=== PATIENT | female | born 1960 | race Caucasian/White ===

== ENCOUNTER → 2017-10-28 08:27 | Outpatient (CLI) | payer MEDICARE ==
[2016-01-03 15:47] VITALS: BMI 35.0
[~2017-10-28 08:27] MED LIST: AMBIEN CR12.5 MG/BO PO; CELEXA20 MG PO; COMPAZINE10 MG PO; CORGARD20 MG PO; DILAUDID4 MG PO; DURAGESIC1 PATCH .2 TRANSDERM; NEURONTIN800 MG PO; NORVASC5 MG PO; PREMARIN0.3 MG PO; PRILOSEC20 MG PO; RELPAX40 MG PO; ROXICODONE15 MG PO; SINEQUAN25 MG PO; TRAVATAN Z2.5 ML EACH EYE; ZANAFLEX4 MG PO; ZOCOR40 MG PO
== END | disposition home or self-care (01) ==
LOC: D.RAD 08:27
DX: R10.9 Unspecified abdominal pain (principal)

== ENCOUNTER 2018-03-17 06:47 | Day surgery (SDC) | payer MEDICARE ==
[~2018-03-17] VITALS: Ht 172.7 cm; Wt 109.1 kg
--- NOTE | ~2018-03-17 | HP ---
PATIENT: COLIN RODRIGUEZ MEDICAL RECORD: [id number] ACCOUNT: [id number] LOCATION:[facility] : 58 ADMISSION DATE: 03/17/18 PCP: SANDY RAO MD HISTORY AND PHYSICAL EXAMINATION CHIEF COMPLAINT: 1. Dysphagia. 2. Gastroesophageal reflux, not controlled. HISTORY: The patient has dysphagia. It is at the level of the cricopharyngeus. It is worse after a cervical fusion. I will plan for esophageal dilation with balloon. She has gastroesophageal reflux, which is not controlled. She is on a PPI as well as Tums. She is a volume refluxer. She refluxes at night and vomits on her pillow. She has been told in the past that she has a hiatal hernia that may need to be repaired. The risks, possible complications and alternatives to procedure were explained to the patient. She elects to proceed. ALLERGIES: EGGS, BREVITAL WELL DEMEROL. HOME MEDICATIONS: Please see the nursing list. SOCIAL HISTORY: Nonsmoker. PAST MEDICAL AND SURGICAL HISTORY: Gastroesophageal reflux, kidney stones and hypertension. History of colon resection by me. PHYSICAL EXAMINATION: GENERAL: The patient does not appear acutely ill. She does not appear chronically ill. VITAL SIGNS: Reviewed. The entire physical examination was performed in the presence of a female nurse. EARS: External ears appear normal. EYES: Extraocular movements are intact. NECK: Trachea is midline. CHEST: No intercostal retractions. PULMONARY: Nonlabored, no stridor. ABDOMEN: Nontender. IMPRESSION: 1. Dysphagia. 2. Uncontrolled gastroesophageal reflux disease. PLAN: EGD with esophageal dilation. TRANSINT:[id number] Voice Confirmation ID: [id number] DOCUMENT ID: [id number] HISTORY AND PHYSICAL [id number] COLIN RODRIGUEZ ROBERT MD at 1603 CC: SANDY RAO MD [id number] DICTATION DATE: 03/17/18923 SLOT FLOORMAN: 03/17/18 1138 [facility] 03/17/18 [address] [id number] [place] [address]
--- NOTE | ~2018-03-17 | OP ---
PATIENT NAME: COLIN RODRIGUEZ MEDICAL RECORD: [id number] :58 LOCATION:D.OPS ADMISSION DATE: SURGEON: OLAYINKA ESCOBAR MD DATE OF OPERATION: 03/17/2018 PREOPERATIVE DIAGNOSES: 1. Dysphagia at the level of the cricopharyngeus. 2. Gastroesophageal reflux disease, uncontrolled. POSTOPERATIVE DIAGNOSES: 1. Dysphagia at the level of the cricopharyngeus. 2. Gastroesophageal reflux disease, uncontrolled. 3. Small hiatal hernia. 4. Bile reflux gastritis, mild. 5. Fundal gastric polyp, sessile, 7 mm. PROCEDURES: 1. Esophagogastroduodenoscopy with antral biopsies. 2. Gastric hot biopsy forceps polypectomy times 1. 3. Control bleeding utilizing the argon plasma civil engineering draftsperson, which is a radiofrequency type of control of bleeding. 4. 54-[place] Citizen balloon dilation with a through the catheter balloon. SURGEON: Olayinka Escobar MD PR INTERN: None. BLOOD LOSS: Minimal. ANESTHESIA: IV sedation. COMPLICATIONS: None. The risks, possible complications, and alternatives to the procedure were explained to the patient. She elects to proceed. The discussion specifically included, but was not limited to, bleeding, requiring emergency reoperation; infection; gastric perforation. ENDOSCOPIC COURSE: The patient was conveyed to endoscopy suite electively on 03/17/2018. IV sedation was induced by the anesthesia staff. A bite block was inserted. A gastroscope was inserted into the mouth. It was advanced easily into the hypopharynx. The esophagus was easily intubated as were stomach and duodenum. Upon withdrawal, retroflexed and angulus views were obtained. Antral biopsies were obtained. There was a gastric polyp, which was best seen in retroflexion. This was removed with the hot biopsy forceps polypectomy technique. There was some post-polypectomy bleeding, which was controlled with the argon plasma civil engineering draftsperson utilizing the esophageal setting in the forced mode. There was no further bleeding. I then unretroflexed the scope. I aspirated the stomach. I advanced a through the catheter balloon. I then sequentially dilated the entire length of the esophagus to 54-[place] Citizen. The gastroscope and balloon dilator were removed. I removed the balloon dilator. I then re-endoscoped the patient's esophagus and stomach. There had been no evidence of false passage or perforation. The endoscope was then withdrawn under direct vision. OPERATIVE REPORT [id number] COLIN RODRIGUEZ I will see the patient in my office in 2-3 weeks. We will review the results of the pathology. Due to the patient's volume reflux, she will be a candidate for a laparoscopic hiatal hernia repair with an antireflux procedure. I will offer her that course of therapy, should she choose to undergo an operation. TRANSINT:[id number] Voice Confirmation ID: [id number] DOCUMENT ID: [id number] OLAYINKA ESCOBAR MD at 1603 CC: SANDY RAO MD [id number] DICTATION DATE: 03/17/18 0959 ASSEMBLER BILLIARD TABLE: 03/17/18 1049 [facility] 03/17/18 [address] [place] [address]
[2018-03-17 07:20] LABS: HEMATOCRIT 44.2 % (36.0-48.0); HEMOGLOBIN 13.7 g/dL (12-16); MCH 26.8 pg (26.0-34.0); MCV 86.5 fL (80.0-100.0); MEAN PLATELET VOLUME 10.3 fL (7.4-10.4); RBC 5.11 10x6/uL (4.00-5.40); RDW 16.7 % (11.5-14.5); WBC 5.9 10x3/uL (4.8-10.8)
[2018-03-17] MEDS ORDERED: AMITRIPTYLINE H50 MG PO (07:43)
[2018-03-17] MEDS ORDERED: CYMBALTA60 MG PO (07:44)
[2018-03-17] MEDS ORDERED: BACLOFEN20 M1 PO (07:46)
[2018-03-17 07:54] VITALS: BP 146/88; Ht 172.7 cm; Wt 109.1 kg
== END 2018-03-17 11:17 | disposition home or self-care (01) ==
LOC: D.OPS 06:47
PROVIDERS: Anesthesiology
DX: K29.60 Other gastritis without bleeding (principal); K44.9 Diaphragmatic hernia without obstruction or gangrene; K31.7 Polyp of stomach and duodenum; K21.9 Gastro-esophageal reflux disease without esophagitis; Z98.1 Arthrodesis status; Z88.5 Allergy status to narcotic agent; Z88.8 Allergy status to other drugs, medicaments and biological substances; Z91.012 Allergy to eggs; I10 Essential (primary) hypertension; Z01.812 Encounter for preprocedural laboratory examination

== ENCOUNTER 2018-04-30 10:27 | Outpatient (CLI) | payer MEDICARE ==
[2018-03-17 07:54] VITALS: BMI 36.5
[~2018-04-30 10:27] MED LIST changes: +AMITRIPTYLINE H50 MG PO; +BACLOFEN20 M1 PO; +CYMBALTA60 MG PO
== END 2018-04-30 11:53 | disposition home or self-care (01) ==
LOC: D.OPS 10:27
DX: K21.9 Gastro-esophageal reflux disease without esophagitis (principal); Z01.812 Encounter for preprocedural laboratory examination

== ENCOUNTER 2018-07-03 08:30 | Inpatient (IN) | payer MEDICARE ==
[2018-07-02 14:44] LABS: HEMATOCRIT 45.7 % (36.0-48.0); HEMOGLOBIN 14.3 g/dL (12-16); MCH 28.9 pg (26.0-34.0); MCHC 31.3 g/dL (31.0-37.0); MCV 92.3 fL (80.0-100.0); MEAN PLATELET VOLUME 10.3 fL (7.4-10.4); RBC 4.95 10x6/uL (4.00-5.40); RDW 15.6 % (11.5-14.5); WBC 8.7 10x3/uL (4.8-10.8)
[~2018-07-03] VITALS: Ht 172.7 cm; Wt 115.7 kg
[2018-07-03] VITALS (12 sets, daily range): BP systolic 107–159; BP diastolic 44–93; BMI 38.1; BMI 36.5
[~2018-07-03 08:30] MED LIST changes: +BEPREVE10 ML EACH EYE; +ESTRACE 0.5 MG0.5 MG PO; +IMITREX6 MG/0.51 SQ; +OMEPRAZOLE20 M1 PO; +RIZATRIPTAN5 M1 PO
[2018-07-03] MEDS ORDERED: NEURONTIN800 MG PO (09:21)
--- NOTE | 2018-07-03 13:34 | NUR ---
PRE OP BP 171/101 PER ANESTHESIA
--- NOTE | 2018-07-03 13:55 | NUR ---
PRE OP O2 SAT 92% NOTED TO ANESTHESIA RECORD
--- NOTE | 2018-07-03 14:12 | NUR ---
PT RECEIVED FROM RECOVERY VIA BED. RESTING WITH EYES CLOSED, EASILY AROUSED. O2 @ 4L NC IN PLACE. IV TO RIGHT ARM WITH LR INFUSING. 5 LAPSITES TO ABDOMEN WITH STERI STRIPS INTACT, SITES WITHOUT DRAINAGE. SCABED AREA TO LEFT UPPER QUAD NOTED. DENIES PAIN AT THIS TIME. ORIENTED TO CL AND BED CONTROLS. WILL CONTINUE TO MONITOR.
[2018-07-04] VITALS (17 sets, daily range): BP systolic 76–128; BP diastolic 30–70
[2018-07-04 06:55] LABS: BASOPHILS 0.2 % (0-2); EOSINOPHILS 2.2 % (0-7); HEMATOCRIT 44.2 % (36.0-48.0); HEMOGLOBIN 13.5 g/dL (12-16); IMMATURE GRANULOCYTES 0.4 % (0-5); LYMPHOCYTES 28.8 % (15-50); MCH 28.1 pg (26.0-34.0); MCHC 30.5 g/dL (31.0-37.0); MCV 92.1 fL (80.0-100.0); MEAN PLATELET VOLUME 10.7 fL (7.4-10.4); MONOCYTES 8.1 % (2-11); NEUTROPHILS 60.3 % (40-80); PLATELET COUNT 182 10x3/uL (130-400); WBC 8.3 10x3/uL (4.8-10.8)
[2018-07-04 07:35] LABS: ALBUMIN 2.8 g/dL (3.4-5.0); ALKALINE PHOSPHATASE 88 U/L (46-116); ALT (SGPT) 85 U/L (10-68); BILIRUBIN - TOTAL 0.56 mg/dL (0.2-1.3); CALC OSMOLALITY 277 mosm/kg (275-300); CALCIUM 8.6 mg/dL (8.5-10.1); CARBON DIOXIDE 32.3 mmol/L (21.0-32.0); CHLORIDE - SERUM 99 mmol/L (98-107); CREATININE - SERUM 0.7 mg/dL (0.6-1.3); GLUCOSE 103 mg/dL (74-106); POTASSIUM - SERUM 4.2 mmol/L (3.5-5.1); PROTEIN - SERUM 7.1 g/dL (6.4-8.2); SODIUM 140 mmol/L (136-145); UREA NITROGEN 11 mg/dL (7-18); eGFR NON AFRICAN AMERICAN > 90 mL/min (90-120)
--- NOTE | 2018-07-04 08:30 | NUR ---
PT AOX4 RESP EVEN AND NONLABORED PT DENIES NEEDS AT THIS TIME IV TO LEFT FOREARM PATENT AND INTACT AT THIS TIME SRX2 BED AT LOWEST SETTING CALL LIGHT WITHIN REACH WILL CONTINUE TO MONITOR
[2018-07-04] MEDS ORDERED: MS CONTIN15 MG PO (14:35)
--- NOTE | 2018-07-04 15:54 | NUR ---
ORDERED IV 40MG ONE TIME. AND A CHEST XRAY FOR AM. OVERHEAD IRRIGATOR NOTIFIED AT THIS TIME.
--- NOTE | 2018-07-04 15:58 | NUR ---
PT SON NOTIFIED AT THIS TIME
--- NOTE | 2018-07-04 17:53 | NUR ---
STAFF CALL RAPID DUE TO NOTED WADE IN AUDITORY RESP. SOUNDS. PATIENT NOTED TO BE IN NO NOTED DISTRESS, RT PRESENT AND AGREES THE NOISES ARE MOSTLY IN THE THROAT AREA, NOTIFIED DR. OVIEDO WITH NEW ORDERS RECD.
--- NOTE | 2018-07-04 20:33 | NUR ---
IN AT 1999 TO ASSESS PATIENT. PT WITH RESPIRATIONS AT 17 BUT NOT AROUSING TO VERBAL STIMULI. STERNAL RUB AND PATIENT STILL NOT AROUSING. PAGED DOCTOR PREET AND IMMEDIATE RETURN PHONE CALL WITH AN ORDER FOR STAT ABG'S. ABG'S RESULTED IN CHART. SPOKE WITH DR. OVIEDO AGAIN AND RECEIVED ORDERS TO TRANSFER PATIENT TO ICU AND START BIPAP IMMEDIATELY. RESPIRATORY THERAPIST NOTIFIED OF BIPAP AND SETTING UP EUIPMENT. LIBRARIAN SPECIAL COLLECTIONS NOTIFIED OF TRANSFER. CONTINUOUS MONITORING OF PATIENT AT THIS TIME.
[2018-07-04 20:55] LABS: BASOPHILS 0.2 % (0-2); EOSINOPHILS 3.1 % (0-7); HEMATOCRIT 39.2 % (36.0-48.0); HEMOGLOBIN 12.2 g/dL (12-16); IMMATURE GRANULOCYTES 0.3 % (0-5); LYMPHOCYTES 28.8 % (15-50); MCH 28.6 pg (26.0-34.0); MCHC 31.1 g/dL (31.0-37.0); MEAN PLATELET VOLUME 9.7 fL (7.4-10.4); MONOCYTES 8.4 % (2-11); NEUTROPHILS 59.2 % (40-80); PLATELET COUNT 164 10x3/uL (130-400); RBC 4.26 10x6/uL (4.00-5.40); RDW 16.1 % (11.5-14.5)
[2018-07-04 21:07] LABS: ALBUMIN 2.6 g/dL (3.4-5.0); ANION GAP 9.9 mmol/L (8-16); BILIRUBIN - DIRECT 0.24 mg/dL (0.00-0.30); BILIRUBIN - TOTAL 0.69 mg/dL (0.2-1.3); CALCIUM 8.1 mg/dL (8.5-10.1); CARBON DIOXIDE 32.1 mmol/L (21.0-32.0); PROTEIN - SERUM 6.6 g/dL (6.4-8.2)
[2018-07-04 21:08] LABS: APTT 30.2 SECONDS (22.8-39.4); INR 1.08 (0.85-1.17); PROTIME 13.5 SECONDS (11.6-15.0)
--- NOTE | 2018-07-04 21:26 | NUR ---
REPORT RECEIVED CARE ASSUMED. ICU MONITORS IN PLACE. ASSESSMENT DONE SEE FLOW SHEET. WILL CONTINUE TO MONITOR.
--- NOTE | 2018-07-04 21:37 | NUR ---
DR OVIEDO INFORMED OF PT STATUS. NO NEW ORDERS RECEIVED. ORDER TO CALL BACK WITH CHANGES RECEIVED. DECREASE IN BP NOTED. WILL CONITNUE TO MONITOR.
--- NOTE | 2018-07-04 23:51 | NUR ---
2300 REASSESSMENT DONE SEE FLOW SHEET. DR OVIEDO INFORMED OF PT STATUS. ORDERS RECEIVED. 2350 DR OVIEDO INFORMED OF PT STATUS. STAT ABG ORDERED. WILL CALL WITH RESULTS.
[2018-07-05] VITALS (22 sets, daily range): BP systolic 97–134; BP diastolic 36–70; Ht 172.7 cm; Wt 115.7 kg
--- NOTE | 2018-07-05 03:00 | NUR ---
0100 PT IN BED RESTING. VSS. NO SIGN SO FACUTE DISTRESS NOTED WILL CONTINUE TO MONITOR. 0300 REASSESSMENT DONE SEE FLOW SHEET. VSS. RT AT BEDSIDE.
--- NOTE | 2018-07-05 03:52 | NUR ---
PT AOX4. SITTING UP IN BED USING IPAD NOT IMPARMENTS NOTED.
--- NOTE | 2018-07-05 05:00 | NUR ---
COMPLETE BED BATH. PT VERBALIZES GREATFULLNESS FOR CARE. VSS. NO SIGNS OF ACUTE DISTRESS NOTED WILL CONTINUE TO MONITOR.
[2018-07-05 06:05] LABS: ANION GAP 14.2 mmol/L (8-16); CALCIUM 7.8 mg/dL (8.5-10.1); CARBON DIOXIDE 32.6 mmol/L (21.0-32.0); CREATININE - SERUM 0.9 mg/dL (0.6-1.3); POTASSIUM - SERUM 3.8 mmol/L (3.5-5.1)
[2018-07-05 06:28] LABS: BASOPHILS 0.2 % (0-2); EOSINOPHILS 4.1 % (0-7); HEMATOCRIT 35.8 % (36.0-48.0); HEMOGLOBIN 10.9 g/dL (12-16); MCH 28.2 pg (26.0-34.0); MCHC 30.4 g/dL (31.0-37.0); MCV 92.5 fL (80.0-100.0); MEAN PLATELET VOLUME 10.3 fL (7.4-10.4); MONOCYTES 6.1 % (2-11); NEUTROPHILS 58.6 % (40-80); RBC 3.87 10x6/uL (4.00-5.40)
[2018-07-05 06:29] LABS: PLATELET COUNT 127 10x3/uL (130-400); WBC 5.4 10x3/uL (4.8-10.8)
--- NOTE | 2018-07-05 07:17 | NUR ---
RT AT BEDSIDE BLOOD GAS REVIEWED NC AT 4LPM VSS WILL CONTINUE TO MONITOR.
--- NOTE | 2018-07-05 10:45 | NUR ---
DR. MIESHA ACOSTA. ALREADY AWARE OF CONSULT.
--- NOTE | 2018-07-05 13:34 | NUR ---
0945: WALKED WITH PT AND ASSISTED TO RECLINER. 1100: ASSISTED BACK TO BED. C/O BACK HURTING AND UNABLE TO STAY UP IN CHAIR ANY LONGER. IV R FOREARM INFILTRATED. IVF CONNECTED TO SALINE LOCK R HAND. 1130: ASSISTED BACK TO CHAIR. 1245: IV R HAND INFILTRATED. RESTARTED IN L FOREARM ON 2ND ATTEMPT WITH 2OG. IV LRS CONNECTED @ 20CC/HR. 1300: ASSISTED BACK TO BED.
--- NOTE | 2018-07-05 21:01 | NUR ---
1900 REPORT RECEIVED CARE ASSUMED. PT LAYING IN BED RESTING. VSS. ASSESSMENT DONE SEE FLOW SHEET. 1999 PT AMBULATED WITH MINIMAL ASSISTANCE TO BATHROOM. BM NOTED SEMIFORMED. 2100 MEDS GIVEN PER JUL. VSS. BIPAP PUT IN PLACE.
--- NOTE | 2018-07-05 22:58 | NUR ---
REASSESSMENT COMPLETE. VSS. NO SIGNS OF ACUTE DISTRESS NOTED WILL CONTINUE TO MONITOR.
[2018-07-06] VITALS (22 sets, daily range): BP systolic 87–168; BP diastolic 43–93
--- NOTE | 2018-07-06 01:00 | NUR ---
PT DISLODGED IV. PIV RESITED R FOREARM 20G. VSS. PT VERBALIZES NO COMPLAINTS.
--- NOTE | 2018-07-06 02:52 | NUR ---
REASSESSMENT DONE SEE FLOW SHEET. VSS. PT IN BED RESTING. BREAK FROM BIPAP GIVEN. WILL CONTINUE TO MONITOR.
[2018-07-06 04:32] LABS: BASOPHILS 0.2 % (0-2); EOSINOPHILS 4.4 % (0-7); HEMATOCRIT 37.1 % (36.0-48.0); HEMOGLOBIN 11.1 g/dL (12-16); IMMATURE GRANULOCYTES 0.4 % (0-5); LYMPHOCYTES 29.7 % (15-50); MCH 28.2 pg (26.0-34.0); MCHC 29.9 g/dL (31.0-37.0); MCV 94.2 fL (80.0-100.0); MEAN PLATELET VOLUME 9.9 fL (7.4-10.4); MONOCYTES 7.1 % (2-11); NEUTROPHILS 58.2 % (40-80); PLATELET COUNT 127 10x3/uL (130-400); RBC 3.94 10x6/uL (4.00-5.40); RDW 15.7 % (11.5-14.5); WBC 4.8 10x3/uL (4.8-10.8)
[2018-07-06 04:50] LABS: ALKALINE PHOSPHATASE 78 U/L (46-116); BILIRUBIN - TOTAL 0.72 mg/dL (0.2-1.3); CALCIUM 8.2 mg/dL (8.5-10.1); CARBON DIOXIDE 29.2 mmol/L (21.0-32.0); CHLORIDE - SERUM 106 mmol/L (98-107); POTASSIUM - SERUM 3.9 mmol/L (3.5-5.1); PROTEIN - SERUM 6.6 g/dL (6.4-8.2); SODIUM 142 mmol/L (136-145)
[2018-07-06 04:52] LABS: ALT (SGPT) 46 U/L (10-68); CALC OSMOLALITY 279 mosm/kg (275-300); CREATININE - SERUM 0.6 mg/dL (0.6-1.3); GLUCOSE 88 mg/dL (74-106); UREA NITROGEN 6 mg/dL (7-18); eGFR NON AFRICAN AMERICAN > 90 mL/min (90-120)
--- NOTE | 2018-07-06 05:00 | NUR ---
PT AMBULATED TO CHAIR MODERATE ASSISTANCE PROVIDED.
--- NOTE | 2018-07-06 07:00 | NUR ---
PATIENT SITTING UP IN CHAIR AWAKE AND ALERT WITH STABLE VS. O2 INFUSING AT 2L VIA NC. 5 ABDOMINAL INCISIONS TO ABDOMEN INTACT WITH NO REDNESS OR SWELLING AND STERI STRIPS INTACT. WILL CONTINUE TO MONITOR.
--- NOTE | 2018-07-06 09:00 | NUR ---
ASSISTED PATIENT BACK TO BED FROM CHAIR. VSS. WILL CONTINUE TO MONITOR.
--- NOTE | 2018-07-06 10:00 | NUR ---
PATIENT REFUSED K+ LAB REDRAW. PREVIOUS LAB WAS 3.4 AND TREATED WITH 40MG.
--- NOTE | 2018-07-06 10:49 | NUR ---
WOUND CARE NURSE OMER CAME TO LOOK AT BUTTOCK STAGE 2 WOUND. WE PLACED MEPILEX DRESSING. ALSO TURNED TO RIGHT SIDE.
--- NOTE | 2018-07-06 10:59 | NUR ---
PATIENT RESTING IN BED WITH NO COMPLAINTS. VSS. WILL CONTINUE TO MONITOR.
--- NOTE | 2018-07-06 11:31 | NUR ---
ASSISTED PATIENT TO BATHROOM TO HAVE LOOSE BM. NURSE CLEANED AND ASSISTED BACK VIA WALKER. VSS.
--- NOTE | 2018-07-06 13:26 | NUR ---
PHYSICAL THERAPY AMBULATED PATIENT 142 FEET WITH WALKER AND NO 02. OXYGEN DROPPED TO 88% AT LOWEST AND HUNG AROUND 92% MOSTLY. NOTIFIED DR. TAN AND WILL NOTIFY BASTING CLEANER RACHEL TO ARRANGE FOR HOME O2. PATIENT NOW SITTING UP IN CHAIR WITH O2 2L/NC. VSS.
--- NOTE | 2018-07-06 13:31 | NUR ---
SPOKE TO DR. GENA CHRISTIANSON TEODORA TO AMEND DISCHARGE ORDER OR CHANGE IT TO TOMORROW.
--- NOTE | 2018-07-06 14:36 | NUR ---
ASSISTED PT TO BATHROOM FOR FALSE ALARM BM. YOLIS RN, TRANSFERRED BACK TO BED AND HOOKED UP TO MONITOR. VSS.
--- NOTE | 2018-07-06 16:00 | NUR ---
REMOVED MORE CATHETER PER VERBAL ORDER BY DR. TAN.
--- NOTE | 2018-07-06 16:34 | NUR ---
ASSISTED PT TO BR TO VOID THEN TO CHAIR. SITTING UP TALKING TO FRIEND. VSS.
--- NOTE | 2018-07-06 16:56 | NUR ---
OT NOTE: PT COMPLETED BED MOB AND EOB SITTING BALANCE WITH SBA. PT COMPLETED BUE AROM AXS. THANK YOU, DAVID MARIO
--- NOTE | 2018-07-06 17:00 | NUR ---
PATIENT RESTING IN BED C CALL MONTANO IN REACH. VSS.
--- NOTE | 2018-07-06 19:30 | NUR ---
REC'D TO CARE, MACHINE ADJUSTER HELPER PER FLOWSHEET. PT ALERT AND ORIENTED, VSS. PT UP TO BSC, VOIDED 200ML CLEAR, YELLOW URINE, ADAIR-CARE PER PT. BACK TO BED. ALARMS ON AND C.L. IN REACH. PT WITH DISCHARGE ORDERS HOME TOMORROW WITH HOME BIPAP.
--- NOTE | 2018-07-06 20:56 | NUR ---
ADMIN PO MEDS PER MD ORDER. PT HOME MED DOXEPIN HELD THIS MORNING PER PT REQUEST D/T SHE TAKES IT AT NIGHT. UNABLE TO CLARIFY HOME MED LIST D/T DISCHARGE MED REC COMPLETE. PT BACK TO BED, BIPAP ON. C/L IN REACH.
--- NOTE | 2018-07-06 23:30 | NUR ---
REASSESSMENT PER FLOWSHEET, NO ACUTE CHANGES. PT TAKING BREAK FROM BIPAP. UP TO BSC INDEPENDENTLY. THEN BACK TO BED. ALARMS ON AND C/L IN REACH.
[2018-07-07] VITALS (11 sets, daily range): BP systolic 126–151; BP diastolic 55–92
--- NOTE | 2018-07-07 01:14 | NUR ---
PT RESTING QUIETLY, VSS. BIPAP 40%. C/L IN REACH.
--- NOTE | 2018-07-07 04:37 | NUR ---
WENT TO XRAY VIA W/C. BACK TO ROOM AND C/O PAIN. ADMIN PRN RIZATRIPTAN.
[2018-07-07 05:04] LABS: CALC OSMOLALITY 279 mosm/kg (275-300); CALCIUM 8.4 mg/dL (8.5-10.1); CARBON DIOXIDE 30.6 mmol/L (21.0-32.0); CHLORIDE - SERUM 106 mmol/L (98-107); CREATININE - SERUM 0.6 mg/dL (0.6-1.3); GLUCOSE 94 mg/dL (74-106); MAGNESIUM - SERUM 1.9 mg/dL (1.8-2.4); PHOSPHOROUS 2.8 mg/dL (2.5-4.9); POTASSIUM - SERUM 3.6 mmol/L (3.5-5.1); SODIUM 142 mmol/L (136-145); UREA NITROGEN 5 mg/dL (7-18); eGFR NON AFRICAN AMERICAN > 90 mL/min (90-120)
--- NOTE | 2018-07-07 06:00 | NUR ---
PT UP TO BSC, MINIMAL ASSIST. VOIDED 150ML CLEAR, KRISTA URINE, ADAIR-CARE PER PT. BACK TO BED. C/L IN REACH.
--- NOTE | 2018-07-07 08:34 | NUR ---
UP IN CHAIR BESIDE BED WATCHING TV AT THIS TIME. NO ACUTE DISTRESS NOTED. PT ALERT AND ORIENTED. ASSISTED TO TOILET VIA STAND BY ASSIST. PT DENIES ANY NEEDS. WILL CONTINUE PLAN OF CARE.
--- NOTE | 2018-07-07 09:46 | NUR ---
CN[place] IS A PT HOME MED, SHE STATES SHE TAKES AT [facility] NOT IN AM. TIME CHANGED TO [facility] PER PT REQUEST.
--- NOTE | 2018-07-07 11:54 | NUR ---
CONTINENT BOWEL MOVEMENT NOTED AT THIS TIME VIA TOILET. PT WALKED INDEPENDENTLY. NO ACUTE DISTRESS NOTED. WILL CONTINUE PLAN OF CARE.
--- NOTE | 2018-07-07 13:25 | OP ---
PATIENT NAME: COLIN RODRIGUEZ MEDICAL RECORD: [id number] :58 LOCATION:[facility] ADMISSION DATE:07/04/18 SURGEON: MICHAEL ESCOBAR MD DATE OF OPERATION: 07/03/2018 PREOPERATIVE DIAGNOSES: 1. Volume gastroesophageal reflux. 2. Intractable gastroesophageal reflux. 3. Hiatal hernia. POSTOPERATIVE DIAGNOSES: 1. Volume gastroesophageal reflux 2. Intractable gastroesophageal reflux. 3. Hiatal hernia. 4. Hepatomegaly. 5. Nodular liver consistent with cirrhosis. 6. Stigmata of portal hypertension. 7. Splenomegaly. PROCEDURES: 1. Laparoscopic hiatal hernia repair. 2. Laparoscopic Yordy fundoplication. 3. A 14-gauge core needle liver biopsy. SURGEON: Michael Escobar MD GLOBAL LOGISTICS ANALYST: Dr. AJ Chacko, also Gisel Escalante APN BLOOD LOSS: 100 cc. ANESTHESIA: General. COMPLICATIONS: None. The risks, possible complications and alternatives to the procedure were explained to the patient. She elects to proceed. OPERATIVE COURSE: The patient was conveyed to the operating room electively on 07/03/2018. General anesthesia was induced by anesthesia staff. The abdomen was sterilely prepped and draped. Utilizing Optiview device, I entered the peritoneal cavity through a transverse incision just above the umbilicus. CO2 insufflation was begun. Once a sufficient pneumoperitoneum had been achieved, two 5-mm trocars were inserted in the left side of the abdomen. A 12-mm trocar and a 5-mm trocar were inserted in the right side of the abdomen. A 5-mm incision was accomplished just inferior to the xiphoid process. The Marty retractor was placed and used to elevate the left lateral segment of the liver. Under laparoscopic guidance, I percutaneously accessed the right upper quadrant utilizing a 14-guage core biopsy device. The biopsy sites were made hemostatic with electrocautery. I took down the pars flaccida with the Harmonic scalpel. I then divided the phrenicoesophageal ligament with the Harmonic scalpel. I then excised the esophagogastric fat pad with the Harmonic scalpel. We came around the greater curve of the stomach with the Harmonic scalpel as well. At no time was there any apparent injury to the stomach or esophagus, I then dissected up into the OPERATIVE REPORT [id number] RODRIGUEZ,COLIN A mediastinum bluntly. I defined both crura of the diaphragm. I created a retroesophageal window. The hiatal hernia repair was a posterior crural repair that consisted of a 0 Prolene Stratafix suture. I then performed the fundoplication, which was a 3 stitch anterior Yordy type fundoplication and this was done suturing fundus of the stomach to esophagus to fundus of the stomach anteriorly. This consisted of a 2-0 PDS. I then removed the Marty retractor. There was no bleeding. Dr. Chacko performed an EGD and there was no evidence of perforation or bleeding. The endoscope was then withdrawn under direct vision. The 12-mm trocar and 11-mm trocar sites were closed in the following manner. THe fascia was closed with interrupted 0 Vicryl sutures. The skin was approximated with multiple interrupted intracuticular 4-0 Vicryls. Benzoin and Steri-Strips were applied. The patient was then extubated and conveyed to post-anesthesia care unit where she was in stable condition. TRANSINT:[id number] Voice Confirmation ID: [id number] DOCUMENT ID: [id number] MICHAEL ESCOBAR MD at 1325 CC: [id number] DICTATION DATE: 07/03/18 1524 COTTON WEIGHER: 07/03/18 3399 ADM IN [place] [id number] [place] [id number]
--- NOTE | 2018-07-07 13:49 | NUR ---
PT TO BE DISCHARGED HOME TODAY, NOTED SHE NEEDS TO FOLLOW UP WITH DR WHITESIDE IN 2-[address] ESCOBAR IN 2 WEEKS. PT STATED SHE WISHED TO SET UP THE APPOINTMENTS HERSELF INSTEAD OF STAFF MAKING THOSE APPOINTMENTS FOR HER. ALSO NOTED PER CASE MANAGEMENT THE HOME OXYGEN ORDERED IS IN HER ROOM WITH HER READY FOR WHEN SHE GOES HOME, AND INSURANCE HAS YET TO APPROVE THE TRILOGY. WILL CONTINUE PLAN OF CARE.
--- NOTE | 2018-07-07 14:57 | NUR ---
PT DC HOME AT THIS TIME VIA WHEELCHAIR WITH ASSIST FROM NURSING STAFF. LEFT VIA PERSONAL VEHICLE WITH FRIEND. PER CASE MANAGEMENT OXYGEN AND NEBULIZER SHOULD BE DELIVERED TO HOME SOON IF NOT DONE ALREADY, AND TRILOGY APPROVEMENT IS PENDING. PT IS AWARE OF UPCOMING APOINTMENTS AND STATED SHE WISHED TO MAKE HER OWN APPOINTMENTS. DENIES ANY FURTHER QUESTIONS OR CONCERNS. LEFT WITH DISCHARGE PAPERWORK, OXYGEN DELIVERED BY [facility], AND [facility]. NO ACUTE DISTRESS. NO FUTHER ACTIONS.
--- NOTE | 2018-07-07 15:27 | MORECARE ---
CASE MANAGEMENT DISCHARGE SUMMARY PATIENT: COLIN RODRIGUEZ UNIT: [id number] ADM DATE: 07/04/18 AGE: 58 : 58 SEX: F ROOM/BED: [facility] AUTHOR: NILSON CUMMINS PHYSICIAN: REFERRING PHYSICIAN: MICHAEL ESCOBRA MD DATE OF SERVICE: 07/07/18 Discharge Plan Patient Name: COLIN RODRIGUEZ Facility: [facility]:[place] : 1960 Planned Disposition: Home Anticipated Discharge Date: Discharge Date: 07/07/2018 Expected LOS: Initial Reviewer: [email or web address] Initial Review Date: 07/06/2018 Generated: 07/07/18 4:27 pm External Providers External Provider: Aislinn Mabry Next Contact Date: Service Request Date: Service Type: Resolution: Reviewer: Comments: Coverage Notice Reviewer: [email or web address] Jason Maravilla Notice Issued Date-Time: 07/07/2018 15:05 Notice Type: IM Discharge Notice Notice Delivered To: Patient Relationship to Patient: Self Gaming Investigator Name: Delivery Method: HAND - Hand Delivered Taty Days: Prior Verbal Notification: Recipient Understood Notice: Yes Recipient Signature: Yes Med Rec Note Co-signed by Attending: Coverage Notice Comment: Patient Name: COLIN RODRIGUEZ Page [id number] at 1527 All edits/amendments must be made on the electronic document DICTATION DATE: 07/07/18 1526 LOG RAFTER: ZAIRA 07/07/18 1526 RPT#: [id number] DC DATE:07/07/18 STATUS: DIS IN [facility] [address] [facility] [address] END OF REPORT
--- NOTE | 2018-07-07 16:27 | MORECARE ---
CASE MANAGEMENT DISCHARGE SUMMARY PATIENT: COLIN RODRIGUEZ UNIT: [id number] ADM DATE: 07/04/18 AGE: 58 : 58 SEX: F ROOM/BED: [facility] AUTHOR: NILSON CUMMINS PHYSICIAN: REFERRING PHYSICIAN: MICHAEL ESCOBAR MD DATE OF SERVICE: 07/07/18 Discharge Plan Patient Name: COLIN RODRIGUEZ Facility: [facility]:[place] : 1960 Planned Disposition: Home Anticipated Discharge Date: Discharge Date: 07/07/2018 Expected LOS: Initial Reviewer: [email or web address] Initial Review Date: 07/06/2018 Generated: 07/07/18 5:27 pm DCPIA - Discharge Planning Initial Assessment Updated by ANT: Donna Maravilla on 07/07/18 4:26 pm * Is the patient Alert and Oriented? Yes * How many steps to enter\exit or inside your home? RAMP * PCP [facility] * Pharmacy [facility] * Preadmission Environment Home with Family * ADLs Independent * Equipment Hospital Bed * List name and contact numbers for known caregivers / representatives who currently or will assist patient after discharge: YE REYNAGA [facility]- [phone] * Verbal permission to speak to the caregivers and representatives has been obtained from the patient. N/A * Community resources currently utilized None * Additional services required to return to the preadmission environment? No * Can the patient safely return to the preadmission environment? Yes * Has this patient been hospitalized within the prior 30 days at any hospital? No Coverage Notice Reviewer: [email or web address] Jason Maravilla Notice Issued Date-Time: 07/07/2018 15:05 Notice Type: IM Discharge Notice Notice Delivered To: Patient Relationship to Patient: Self Office Equipment Mechanic Name: Delivery Method: HAND - Hand Delivered Taty Days: Prior Verbal Notification: Recipient Understood Notice: Yes Recipient Signature: Yes Med Rec Note Co-signed by Attending: Coverage Notice Comment: Last DP export: 07/07/18 2:27 p Patient Name: COLIN RODRIGUEZ Page [id number] at 1627 All edits/amendments must be made on the electronic document DICTATION DATE: 07/07/181625 WEIGHT ENGINEER: ZAIRA 07/07/18 162 RPT#: [id number] DC DATE:07/07/18 STATUS: DIS IN [facility] [address] [place] [address] END OF REPORT
--- NOTE | 2018-07-07 16:36 | MORECARE ---
CASE MANAGEMENT DISCHARGE SUMMARY PATIENT: COLIN RODRIGUEZ UNIT: [id number] ADM DATE: 07/04/18 AGE: 58 : 58 SEX: F [facility] AUTHOR: PLACIDO,DOC PHYSICIAN: REFERRING PHYSICIAN: MICHAEL ESCOBAR MD DATE OF SERVICE: 07/07/18 Discharge Plan Patient Name: COLIN RODRIGUEZ Facility: [facility]:[place] : 1960 Planned Disposition: Home Anticipated Discharge Date: Discharge Date: 07/07/2018 Expected LOS: Initial Reviewer: [email or web address] Initial Review Date: 07/06/2018 Generated: 07/07/18 5:35 pm Comments DCP- Discharge Planning Updated by [email or web address]: Donna Maravilla on 07/07/18 3:[address] LATE ENTRY 07/06/18 @ 1030 Patient Name: COLIN RODRIGUEZ Admission Status: Elective Accout number: [id number] Admission Date: 07-04-2018 : 1960 Admission Diagnosis:DIAPHRAGMATIC HERNIA WITHOUT OBSTRUCTION OR GANGRENE Attending: MIHCAEL ESCOBAR Current LOS: 3 Anticipated DC Date: Planned Disposition: Home Primary Insurance: [facility] [employer] Discharge Planning Comments: CM met with patient at bedside. Patient states she lives at home with family and plans to return to their home upon discharge. Patient denies any discharge needs at this time. CM will continue to follow and assist as needed with discharge planning / needs. Principal Systems Engineer: Donna Maravilla DCPIA - Discharge Planning Initial Assessment Updated by [email or web address]: Donna Maravilla on 07/07/18 4:26 pm * Is the patient Alert and Oriented? Yes * How many steps to enter\exit or inside your home? RAMP * PCP [facility] * Pharmacy [facility] * Preadmission Environment Home with Family * ADLs Independent * Equipment Hospital Bed * List name and contact numbers for known caregivers / representatives who currently or will assist patient after discharge: YE VIRK- [phone] * Verbal permission to speak to the caregivers and representatives has been obtained from the patient. N/A * Community resources currently utilized None * Additional services required to return to the preadmission environment? No * Can the patient safely return to the preadmission environment? Yes * Has this patient been hospitalized within the prior 30 days at any hospital? No Coverage Notice Reviewer: [email or web address] Jason Maravilla Notice Issued Date-Time: 07/07/2018 15:05 Notice Type: IM Discharge Notice Notice Delivered To: Patient Relationship to Patient: Self Mat Cutter Name: Delivery Method: HAND - Hand Delivered Taty Days: Prior Verbal Notification: Recipient Understood Notice: Yes Recipient Signature: Yes Med Rec Note Co-signed by Attending: Coverage Notice Comment: Last DP export: 07/07/18 3:27 p Patient Name: COLIN RODRIGUEZ Page [phone] at 1636 All edits/amendments must be made on the electronic document DICTATION DATE: 07/07/18 1635 AVIONICS SYSTEMS ENGINEER: ZAIRA 07/07/18 1635 RPT#: [id number] DC DATE:07/07/18 STATUS: DIS IN [facility] [address] [place] [address] END OF REPORT
--- NOTE | 2018-07-07 16:52 | MORECARE ---
CASE MANAGEMENT DISCHARGE SUMMARY PATIENT: COLIN RODRIGUEZ UNIT: [id number] ADM DATE: 07/04/18 AGE: 58 : 58 SEX: F ROOM/BED: [facility] AUTHOR: NILSON CUMMINS PHYSICIAN: REFERRING PHYSICIAN: MICHAEL ESCOBAR MD DATE OF SERVICE: 07/07/18 Discharge Plan Patient Name: COLIN RODRIGUEZ Facility: [facility]:[place] : 1960 Planned Disposition: Home Anticipated Discharge Date: Discharge Date: 07/07/2018 Expected LOS: Initial Reviewer: [email or web address] Initial Review Date: 07/06/2018 Generated: 07/07/18 5:52 pm Comments DCP- Discharge Planning Updated by [email or web address]: Donna Maravilla on 07/07/18 3:[address] Late Entry 07/06/18 @ 1130 CM received notification to set up for Trilogy, nebulizer, and Home 02. CM spoke with patient and OTTONIEL signed for DME. [facility] [phone] fax [phone]. CM spoke with Marian and faxed over records and orders. Marian called CM back stated that [facility] insurance requires an Auth for Trilogy and it could take up to 3 days for approval. Orders received and signed by Dr. Pérez and faxed back to DME. CM will continue to follow and assist as needed with discharge planning / needs. DCP- Discharge Planning Updated by [email or web address]: Donna Maravilla on 07/07/18 3:[address] LATE ENTRY 07/06/18 @ 1030 Patient Name: COLIN RODRIGUEZ Admission Status: Elective Accout number: [id number] Admission Date: 07-04-2018 : 1960 Admission Diagnosis:DIAPHRAGMATIC HERNIA WITHOUT OBSTRUCTION OR GANGRENE Attending: MICHAEL ESCOBAR Current LOS: 3 Anticipated DC Date: Planned Disposition: Home Primary Insurance: [facility] [employer] Discharge Planning Comments: CM met with patient at bedside. Patient states she lives at home with family and plans to return to their home upon discharge. Patient denies any discharge needs at this time. CM will continue to follow and assist as needed with discharge planning / needs. Keyboarding Clerk: Donna Maravilla DCPIA - Discharge Planning Initial Assessment Updated by [email or web address]: Donna Maravilla on 07/07/18 4:26 pm * Is the patient Alert and Oriented? Yes * How many steps to enter\exit or inside your home? RAMP * PCP [facility] * Pharmacy [facility] * Preadmission Environment Home with Family * ADLs Independent * Equipment Hospital Bed * List name and contact numbers for known caregivers / representatives who currently or will assist patient after discharge: YE VIRK- [phone] * Verbal permission to speak to the caregivers and representatives has been obtained from the patient. N/A * Community resources currently utilized None * Additional services required to return to the preadmission environment? No * Can the patient safely return to the preadmission environment? Yes * Has this patient been hospitalized within the prior 30 days at any hospital? No Coverage Notice Reviewer: [email or web address] - Donna Maravilla Notice Issued Date-Time: 07/07/2018 15:05 Notice Type: IM Discharge Notice Notice Delivered To: Patient Relationship to Patient: Self Windows Software Developer Name: Delivery Method: HAND - Hand Delivered Taty Days: Prior Verbal Notification: Recipient Understood Notice: Yes Recipient Signature: Yes Med Rec Note Co-signed by Attending: Coverage Notice Comment: Last DP export: 07/07/18 3:36 p Patient Name: COLIN RODRIGUEZ Page [id number] at 1652 All edits/amendments must be made on the electronic document DICTATION DATE: 07/07/181651 ADVANCED REGISTERED NURSE: ZAIRA 07/07/181651 RPT#: [id number] [place] DATE:07/07/18 STATUS: DIS IN [facility] [address] [place] [address] END OF REPORT
--- NOTE | 2018-07-07 17:07 | MORECARE ---
CASE MANAGEMENT DISCHARGE SUMMARY PATIENT: COLIN RODRIGUEZ UNIT: [id number] ADM DATE: 07/04/18 AGE: 58 : 58 SEX: F [facility] AUTHOR: PLACIDO,DOC PHYSICIAN: REFERRING PHYSICIAN: MICHAEL ESCOBAR MD DATE OF SERVICE: 07/07/18 Discharge Plan Patient Name: COLIN RODRIGUEZ Facility: [facility]:[place] : 1960 Planned Disposition: Home Anticipated Discharge Date: Discharge Date: 07/07/2018 Expected LOS: Initial Reviewer: [email or web address] Initial Review Date: 07/06/2018 Generated: 07/07/18 6:06 pm Comments DCP- Discharge Planning Updated by [email or web address]: Donna Maravilla on 07/07/18 3:[address] CM contacted [facility] this afternoon and they stated they are still awaiting approval for Trilogy. Home 02 has been delivered and portable tank brought to patients room for discharge. Dr. Pérez notified that Trilogy isn't approved yet by insurance. He stated that he couldn't hold up discharge waiting on approval. CM explained and served IMM 07/07/18 @ 2793. Nursing to call in updraft medication to [facility] [phone].CM will continue to follow and assist as needed with discharge planning / needs. DCP- Discharge Planning Updated by [email or web address]: Donna Maravilla on 07/07/18 3:[address] Late Entry 07/06/18 @ 2617 CM received notification to set up for Trilogy, nebulizer, and Home 02. CM spoke with patient and OTTONIEL signed for DME. [facility] [phone] fax [phone]. CM spoke with Marian and faxed over records and orders. Marian called CM back stated that [facility] insurance requires an Auth for Trilogy and it could take up to 3 days for approval. Orders received and signed by Dr. Pérez and faxed back to DME. CM will continue to follow and assist as needed with discharge planning / needs. DCP- Discharge Planning Updated by [email or web address]: Donna Maravilla on 07/07/18 3:[address] LATE ENTRY 2/25/19 @ 1030 Patient Name: COLIN RODRIGUEZ Admission Status: Elective Accout number: [id number] Admission Date: 07-04-2018 : 1960 Admission Diagnosis:DIAPHRAGMATIC HERNIA WITHOUT OBSTRUCTION OR GANGRENE Attending: MICHAEL ESCOBAR Current LOS: 3 Anticipated DC Date: Planned Disposition: Home Primary Insurance: [facility] [employer] Discharge Planning Comments: CM met with patient at bedside. Patient states she lives at home with family and plans to return to their home upon discharge. Patient denies any discharge needs at this time. CM will continue to follow and assist as needed with discharge planning / needs. Transportation Officer: Donna Maravilla DCPIA - Discharge Planning Initial Assessment Updated by [email or web address] Maravilla on 07/07/18 4:26 pm * Is the patient Alert and Oriented? Yes * How many steps to enter\exit or inside your home? RAMP * PCP [facility] * Pharmacy [facility] * Preadmission Environment Home with Family * ADLs Independent * Equipment Hospital Bed * List name and contact numbers for known caregivers / representatives who currently or will assist patient after discharge: YE REYNAGA [facility]- [phone] * Verbal permission to speak to the caregivers and representatives has been obtained from the patient. N/A * Community resources currently utilized None * Additional services required to return to the preadmission environment? No * Can the patient safely return to the preadmission environment? Yes * Has this patient been hospitalized within the prior 30 days at any hospital? No Coverage Notice Reviewer: [email or web address] - Donna Maravilla Notice Issued Date-Time: 07/07/2018 15:05 Notice Type: IM Discharge Notice Notice Delivered To: Patient Relationship to Patient: Self Crossbar Switch Adjuster Name: Delivery Method: HAND - Hand Delivered Taty Days: Prior Verbal Notification: Recipient Understood Notice: Yes Recipient Signature: Yes Med Rec Note Co-signed by Attending: Coverage Notice Comment: Last DP export: 07/07/18 3:52 p Patient Name: COLIN RODRIGUEZ Page 01689 at 1702 All edits/amendments must be made on the electronic document DICTATION DATE: 07/07/181705 ETHNIC ORIGINS TEACHER: ZAIRA 07/07/18 8464 RPT#: [id number] DC DATE:07/07/18 STATUS: DIS IN [facility] [address] [place] [address] END OF REPORT
--- NOTE | 2018-07-07 17:35 | MORECARE ---
CASE MANAGEMENT DISCHARGE SUMMARY PATIENT: COLIN RODRIGUEZ UNIT: [id number] ADM DATE: 07/04/18 AGE: 58 : 58 SEX: F [facility] AUTHOR: PLACIDO,DOC PHYSICIAN: REFERRING PHYSICIAN: MICHAEL ESCOBAR MD DATE OF SERVICE: 07/07/18 Discharge Plan Patient Name: COLIN RODRIGUEZ Facility: [facility]:[place] : 1960 Planned Disposition: Home Anticipated Discharge Date: Discharge Date: 07/07/2018 Expected LOS: Initial Reviewer: [email or web address] Initial Review Date: 07/06/2018 Generated: 07/07/18 6:35 pm Comments DCP- Discharge Planning Updated by [email or web address]: Donna Maravilla on 07/07/18 3:[address] CM contacted [facility] this afternoon and they stated they are still awaiting approval for Trilogy. Home 02 has been delivered and portable tank brought to patients room for discharge. Dr. Pérez notified that Trilogy isn't approved yet by insurance. He stated that he couldn't hold up discharge waiting on approval. CM explained and served IMM 07/07/18 @ 0605. Nursing to call in updraft medication to [facility] [phone].CM will continue to follow and assist as needed with discharge planning / needs. DCP- Discharge Planning Updated by [email or web address]: Donna Maravilla on 07/07/18 3:[address] Late Entry 07/06/18 @ 0905 CM received notification to set up for Trilogy, nebulizer, and Home 02. CM spoke with patient and OTTONIEL signed for DME. [facility] [phone] fax [phone]. CM spoke with Marian and faxed over records and orders. Marian called CM back stated that [facility] insurance requires an Auth for Trilogy and it could take up to 3 days for approval. Orders received and signed by Dr. Pérez and faxed back to DME. CM will continue to follow and assist as needed with discharge planning / needs. DCP- Discharge Planning Updated by [email or web address]: Donna Maravilla on 07/07/18 3:[address] LATE ENTRY 2/25/19 @ 1030 Patient Name: COLIN RODRIGUEZ Admission Status: Elective Accout number: [id number] Admission Date: 07-04-2018 : 1960 Admission Diagnosis:DIAPHRAGMATIC HERNIA WITHOUT OBSTRUCTION OR GANGRENE Attending: MICHAEL ESCOBAR Current LOS: 3 Anticipated DC Date: Planned Disposition: Home Primary Insurance: [facility] [employer] Discharge Planning Comments: CM met with patient at bedside. Patient states she lives at home with family and plans to return to their home upon discharge. Patient denies any discharge needs at this time. CM will continue to follow and assist as needed with discharge planning / needs. Scrip Clerk: Donna Maravilla DCPIA - Discharge Planning Initial Assessment Updated by [email or web address] Maravilla on 07/07/18 4:26 pm * Is the patient Alert and Oriented? Yes * How many steps to enter\exit or inside your home? RAMP * PCP [facility] * Pharmacy [facility] * Preadmission Environment Home with Family * ADLs Independent * Equipment Hospital Bed * List name and contact numbers for known caregivers / representatives who currently or will assist patient after discharge: YE REYNAGA [facility]- [phone] * Verbal permission to speak to the caregivers and representatives has been obtained from the patient. N/A * Community resources currently utilized None * Additional services required to return to the preadmission environment? No * Can the patient safely return to the preadmission environment? Yes * Has this patient been hospitalized within the prior 30 days at any hospital? No Coverage Notice Reviewer: [email or web address] - Donna Maravilla Notice Issued Date-Time: 07/07/2018 15:05 Notice Type: IM Discharge Notice Notice Delivered To: Patient Relationship to Patient: Self Armorer Technician Name: Delivery Method: HAND - Hand Delivered Taty Days: Prior Verbal Notification: Recipient Understood Notice: Yes Recipient Signature: Yes Med Rec Note Co-signed by Attending: Coverage Notice Comment: Last DP export: 07/07/18 4:06 p Patient Name: COLIN RODRIGUEZ Page 31734 at 3880 All edits/amendments must be made on the electronic document DICTATION DATE: 07/07/18 3280 ATHLETICS TEACHER: ZAIRA 07/07/18 7712 RPT#: [id number] [place] DATE:07/07/18 STATUS: DIS IN [facility] [address] [place] [address] END OF REPORT
--- NOTE | 2018-07-07 18:17 | NUR ---
PER [facility], MORPHINE IS NOT COVERED BY PTS INSURANCE, BUT NUCYNTA IS. DR ESCOBAR NOTIFIED OF THIS, NO ORDERS RECIEVED.
== END 2018-07-07 15:03 | disposition home or self-care (01) | DRG 326 ==
LOC: D.MS 08:30 → D.OPS 08:30 → D.PAN 10:45 → D.MS 13:46 → D.CVICU 07-04 17:31 → D.MS 07-04 17:31 → D.OPS 07-04 17:31 → D.CVICU 07-04 21:35
PROVIDERS: Anesthesiology; Internal Medicine Pulmonary Disease; Surgery; ADMIT Surgery
PROC: 0DV44ZZ Restriction of Esophagogastric Junction, Percutaneous Endoscopic Approach (ICD-10-PCS; principal; 2018-07-04)
PROC: 0BQT4ZZ Repair Diaphragm, Percutaneous Endoscopic Approach (ICD-10-PCS; 2018-07-04)
PROC: 0FB14ZX Excision of Right Lobe Liver, Percutaneous Endoscopic Approach, Diagnostic (ICD-10-PCS; 2018-07-04)
PROC: 5A09357 Assistance with Respiratory Ventilation, Less than 24 Consecutive Hours, Continuous Positive Airway Pressure (ICD-10-PCS; 2018-07-04)
DX: K44.9 Diaphragmatic hernia without obstruction or gangrene (principal); J96.22 Acute and chronic respiratory failure with hypercapnia; J96.21 Acute and chronic respiratory failure with hypoxia; J98.11 Atelectasis; E87.2 Acidosis; K21.9 Gastro-esophageal reflux disease without esophagitis; E66.01 Morbid (severe) obesity due to excess calories; Z68.36 Body mass index [BMI] 36.0-36.9, adult; I10 Essential (primary) hypertension; R16.2 Hepatomegaly with splenomegaly, not elsewhere classified; R53.81 Other malaise; R79.89 Other specified abnormal findings of blood chemistry; J44.9 Chronic obstructive pulmonary disease, unspecified; G62.9 Polyneuropathy, unspecified

== ENCOUNTER → 2019-05-07 08:49 | Outpatient (CLI) | payer MEDICARE ==
[2018-07-05 14:11] VITALS: BMI 36.5
[~2019-05-07 08:49] MED LIST changes: +MS CONTIN15 MG PO
== END | disposition home or self-care (01) ==
LOC: D.RT 02-11 10:00
PROVIDERS: ATTEND Internal Medicine Pulmonary Disease
DX: R06.09 Other forms of dyspnea (principal)